=== PATIENT | male | born 1975 | race Caucasian/White ===

== ENCOUNTER 2021-01-08 07:34 | Emergency (ER) | payer SELFPAY ==
[2021-01-08] MEDS: Ketorolac 30 MG/ML SDV IVPUSH ONE (08:00)
--- NOTE | 2021-01-08 08:03 | EDM.PDOC ---
ED HPI GENERAL MEDICAL PROBLEM - General Stated Complaint: FELL Time Seen by Provider: 01/08/21 07:50 Source of Information: Reports: Patient History Limitations: Reports: No Limitations - History of Present Illness INITIAL COMMENTS - FREE TEXT/NARRATIVE: c/o L rib pain fall on ice, landed hard on his back, has pain at his L lower hemithorax anteriorly, has had rib fx's in past, concerned that it may be a different injury owns construction business, lifts heavy objects all day did not want meds or XR's here, has no insurance here with sig other has psoriasis, uses only OTC creams that do not help has not seen physician in years - Related Data Allergies Allergy/AdvReac Type Severity Reaction Status Date / Time No Known Allergies Allergy Verified 01/08/21 07:43 Home Meds: Home Meds Fluocinonide [Lidex 0.05% Oint] 60 gm .XX DAILY #1 tube 01/08/21 [Rx] Hydrocodone/Acetaminophen [Hydrocodon-Acetaminophen 5-325] 1 each PO Q6H PRN #12 tablet 01/08/21 [Rx] ED ROS GENERAL - Review of Systems Review Of Systems: See Below Constitutional: Reports: No Symptoms HEENT: Reports: No Symptoms Respiratory: Reports: No Symptoms Cardiovascular: Reports: No Symptoms Endocrine: Reports: No Symptoms GI/Abdominal: Reports: No Symptoms : Reports: No Symptoms Musculoskeletal: Reports: Other (L rib pain) Skin: Reports: No Symptoms Neurological: Reports: No Symptoms Psychiatric: Reports: No Symptoms Hematologic/Lymphatic: Reports: No Symptoms Immunologic: Reports: No Symptoms ED EXAM, GENERAL - Physical Exam Exam: See Below Exam Limited By: No Limitations General Appearance: Alert, WD/WN, Moderate Distress Nose: Normal Inspection Throat/Mouth: Normal Voice, No Airway Compromise Head: Atraumatic, Normocephalic Neck: Normal Inspection, Supple, Non-Tender, Full Range of Motion Respiratory/Chest: No Respiratory Distress, Other (pt winces with deep breath or moving thorax, sitting fairly straight on edge of bed, 2+ tender at ribs 8-10 just medial to MCL, no swell/ecchymosis/deformity, good BS b/l without evidence of pneumo, no flail rib) Cardiovascular: Regular Rate, Rhythm Course - Orders/Labs/Meds Meds: Medications Discontinued Medications Generic Name Dose Route Start Last Admin Trade Name Lizzeth PRN Reason Stop Dose Admin Ketorolac Tromethamine 30 mg 01/08/21 07:50 Toradol IVPUSH 01/08/21 07:51 ONETIME ONE - Re-Assessments/Exams Free Text/Narrative Re-Assessment/Exam: 01/08/21 08:16 typical rib fx, cannot exclude injury at costochondral junction altho location seems near but not at CC junction, no clinical concerns for other CV or pul concerns pt understands instructions, has multiple patches of typical red plague with white scale scattered over his trunk Departure - Departure Time of Disposition: 07:58 Disposition: Home, Self-Care 01 Condition: Good Clinical Impression: Multiple fractures of ribs of left side - Discharge Information *PRESCRIPTION DRUG MONITORING PROGRAM REVIEWED*: Not Applicable *COPY OF PRESCRIPTION DRUG MONITORING REPORT IN PATIENT RANDOLPH: Not Applicable Prescriptions: Hydrocodone/Acetaminophen [Hydrocodon-Acetaminophen 5-325] 1 each PO Q6H PRN #12 tablet PRN Reason: Pain Fluocinonide [Lidex 0.05% Oint] 60 gm .XX DAILY #1 tube Instructions: Rib Fracture, Psoriasis Additional Instructions: For pain, take ibuprofen 200 mg 4 tabs and acetaminophen 500 mg 2 tabs 3 times a day for 2 weeks, longer if needed. For pain, in place of one of the acetaminophen, take hydrocodone with acetaminophen 5/325 mg 1 tab every 6 hours as needed. No alcohol. Use ice for 10 minutes every 1-2 hours for the next 2 days. For psoriasis, use 0.05% fluocinonide ointment daily for 1-2 weeks as needed. See your physician if you pain gets worse, you develop shortness of breath, fever or other new symptoms.
== END 2021-01-08 08:20 | disposition home or self-care (01) ==
LOC: FB.ED 07:34
DX: S22.42XA Multiple fractures of ribs, left side, initial encounter for closed fracture (principal); W00.0XXA Fall on same level due to ice and snow, initial encounter
CPT/HCPCS: 99283; 99284